=== PATIENT | male | born 1950 | race African-American/Black ===

== ENCOUNTER → 2018-10-04 | Outpatient (CLI) | payer OTHER ==
[~2018-10-04] MED LIST: ALL100 PO; ALLO-2 PO; INDO-21 PO; INDO50CA92 PO; PRE20 PO; VITA1CAP46 PO; VITAMIN B; [UNRECOGNIZED DRUG - REMARK]
--- NOTE | 2018-10-05 12:54 | RT STRESS TEST REPORT ---
FACILITY: [facility] - [place] PATIENT NAME: JEET ARTEAGA : [id number] MR: [id number]: [id number] EXAM DATE: ORDERING PHYSICIAN: ZAIN MENG TECHNOLOGIST: [employer] Time: 2018-10-04 09:35:21 Total Exercise Time: 00:04:54 Test Indications: Chest Discomfort Medications: Linsopril rosuvastain Protocol: SHANNAN 2 Max HR: 151 BPM 98% of Pred: 154 BPM Max BP: 224/105 mmHG Max Work Load: 6.8 METS Resting EKG showes T wave changes in inferior leads which seem to worsen slightly during exercise Impression Non Diagnostic treadmeill stress test because of baseline EKG abnormalities Recommend Nuclears medicine stress test or stress Echo resting HTN with exagerrated response Confirmed by DEYANIRA NAVA ([id number]) on 10/05/2018 12:53:47 PM Referred By: Overread By: DEYANIRA NAVA
== END ==
LOC: RESP 07:21
PROVIDERS: ATTEND Nurse Practitioner Family
DX: R94.31 Abnormal electrocardiogram [ECG] [EKG] (principal)
CPT/HCPCS: 93017